=== PATIENT | male | born 1975 | race Two or more races ===

== ENCOUNTER 2021-01-09 10:20 | Emergency (ER) | payer BC, OTHER ==
[2021-01-09] MEDS ORDERED: ONDANSETRON ODT 4 MG TAB PO ONE (12:00)
[2021-01-09] MEDS ORDERED: HYDROcodone-ACET 10/325MG TAB PO ONE (12:00)
[2021-01-09 12:42] VITALS: BP 106/70
[2021-01-09] MEDS ORDERED: ceFAZolin 1GM/50ML 50 ML IV ONE (12:45)
[2021-01-09] MEDS ORDERED: TETANUS-DIPTH-ACEL PERTUSSIS 0.5ML SYR Tdap IM ONE (13:15)
[2021-01-09] MEDS ORDERED: BACITRACIN TOP OINT 1 UD PKG TOP ONE (13:45)
== END 2021-01-09 14:02 | disposition home or self-care (01) ==
LOC: ER 10:20
DX: S61.217A Laceration without foreign body of left little finger without damage to nail, initial encounter (principal); S62.627A Displaced fracture of middle phalanx of left little finger, initial encounter for closed fracture; W26.8XXA Contact with other sharp object(s), not elsewhere classified, initial encounter; Y93.89 Activity, other specified; Y92.89 Other specified places as the place of occurrence of the external cause; Y99.8 Other external cause status
CPT/HCPCS: 12002; 29130; 73140; 90471; 90715; 96365; 99284; J0690; Q0162

== ENCOUNTER 2021-01-16 10:02 | Emergency (ER) | payer BC ==
[~2021-01-16] VITALS: Ht 185.4 cm; Wt 73.5 kg
[2021-01-16 11:24] VITALS: BP 125/87
[2021-01-16] MEDS ORDERED: CLINDAMYCIN 900MG IV 50 ML IV ONE (12:00)
[2021-01-16] MEDS ORDERED: cefTRIAXone 1GM/50ML D5W 50 ML IV ONE (12:00)
[2021-01-16 12:22] LABS: Basophils # (auto) 0 10 ^3/uL (0-0.2); Basophils % (auto) 0.3 % (0.0-2.0); Eosinophils # (auto) 0.1 10 ^3/uL (0-0.8); Eosinophils % (auto) 0.7 % (0.0-7.0); Hematocrit 49.8 % (41.0-53.0); Lymphocytes % (auto) 26.8 % (10.0-50.0); Mean Corpuscular Hgb Conc. 34.2 g/dL (32.0-36.0); Mean Corpuscular Volume 96.6 fL (80.0-100.0); Monocytes # (auto) 0.5 10 ^3/uL (0-1.3); Monocytes % (auto) 6.5 % (0.0-12.0); Neutrophils # (auto) 4.9 10 ^3/uL (1.6-8.6); Neutrophils % (auto) 65.7 % (37.0-80.0); Nucleated Red Blood Cells % 0.1 %; Red Blood Cells 5.16 10^6/uL (4.5-5.90); White Blood Cell 7.4 10^3/uL (4.4-10.8)
== END 2021-01-16 14:37 | disposition home or self-care (01) ==
LOC: ER 10:02
DX: S62.637D Displaced fracture of distal phalanx of left little finger, subsequent encounter for fracture with routine healing (principal); S62.627D Displaced fracture of middle phalanx of left little finger, subsequent encounter for fracture with routine healing; L03.012 Cellulitis of left finger; X58.XXXD Exposure to other specified factors, subsequent encounter
CPT/HCPCS: 36415; 73200; 85025; 96365; 96366; 96368; 99284; J0696; J3490